=== PATIENT | female | born 1980 | race Caucasian/White ===

== ENCOUNTER 2017-07-12 10:40 | Day surgery (SDC) | payer OTHER ==
[~2017-07-12 10:40] MED LIST: CEFAZOLIN 2 GM/50 ML (PMX) 50 ML IVPB; SOD CHLORIDE 0.9% 1,000 ML IV
[2017-07-12] MEDS ORDERED: BUPIVACAINE 0.25% (MPF) 30 ML INJ (11:57)
[2017-07-12] MEDS ORDERED: KETOROLAC 30 MG INJ (12:23)
[2017-07-12] MEDS ORDERED: ONDANSETRON 4 MG INJ (12:23)
[2017-07-12] MEDS ORDERED: METOCLOPRAMIDE 10 MG INJ (12:23)
[2017-07-12] MEDS ORDERED: NEOSTIGMINE 3 MG/3 ML SYRINGE (12:23)
[2017-07-12] MEDS ORDERED: MIDAZOLAM 1 MG/ML 2 ML INJ (12:23)
[2017-07-12] MEDS ORDERED: ROCURONIUM 50 MG INJ (12:23)
[2017-07-12] MEDS ORDERED: ROPIVACAINE 0.5 % 30 ML VIAL (12:23)
[2017-07-12] MEDS ORDERED: PROPOFOL 20 ML (12:23)
[2017-07-12] MEDS ORDERED: CEFAZOLIN 1 GM INJ (12:23)
[2017-07-12] MEDS ORDERED: HYDROmorphONE (0.2 MG/ML) 10ML SYG IV (13:00)
[2017-07-12] MEDS ORDERED: KETOROLAC 15 MG INJ IV (13:00)
[2017-07-12] MEDS ORDERED: OXYCODONE/ACETAMINOPHEN (5/325) TAB PO (13:00)
[2017-07-12] MEDS ORDERED: EPHEDrine SULFATE 50 MG/5 ML SYG (13:17)
[2017-07-12] MEDS: BUPIVACAINE 0.25% (MPF) 30 ML INJ INJ (13:22)
[2017-07-12] MEDS ORDERED: GLYCOPYRROLATE 0.4 MG INJ (13:27)
[2017-07-12] MEDS: HYDROmorphONE (0.2 MG/ML) 10ML SYG IV ×2 (13:58→14:05)
[2017-07-12] MEDS: ONDANSETRON 4 MG INJ IV (14:00)
== END 2017-07-12 16:00 | disposition home or self-care (01) ==
LOC: SDS 10:40
DX: K80.20 Calculus of gallbladder without cholecystitis without obstruction (principal); K80.10 Calculus of gallbladder with chronic cholecystitis without obstruction
CPT/HCPCS: 47562; 84703; 88304